=== PATIENT | female | born 1955 | race Caucasian/White ===

== ENCOUNTER → 2023-11-13 07:18 | Outpatient (REF) | payer OTHER, SELFPAY | LOC: DHCBC/DCA 07:18 | PROVIDERS: ATTENDING PHYSICIAN Internal Medicine Cardiovascular Disease; FAMILY PHYSICIAN Nurse Practitioner Adult Health | DX: I25.10 Atherosclerotic heart disease of native coronary artery without angina pectoris (principal) | CPT/HCPCS: 78452; 93017; A9500 ==

== ENCOUNTER 2023-11-17 10:47 | Day surgery (SDC) | payer OTHER, SELFPAY ==
[2023-11-17] VITALS (12 sets, daily range): BP systolic 91–148; BP diastolic 50–76; BMI 33.8
[2023-11-17] MEDS: LOW STRENGTH ASPIRIN 81 MG PO (11:26)
[2023-11-17] MEDS: NSS 243 ML IV (11:27)
--- NOTE | 2023-11-17 13:02 | ITS.CL.CATH ---
[employer] - Catheterization
Cardiac Catheterization
Procedure Report:
CARDIAC CATHETERIZATION REPORT
Date of Procedure: 11/17/2023
Referring: Mitesh Oconnell MD
Indication: Recent office visit for preoperative cardiac evaluation with description by patient of recent onset angina
HEMODYNAMIC DATA
AO: 105/68
LV: 105/16
LEFT VENTRICULOGRAPHY: Normal left ventricular wall motion with EF 69%
CORONARY ANGIOGRAPHY
Dominance: Right
Left Main: Normal
LAD: Diffuse mild luminal irregularities in the LAD. The large D1 has 30% proximal stenosis.
Circumflex: 20% proximal stenosis with otherwise mild luminal irregularities in the circumflex proper. OM1 has 30% proximal to mid stenosis.
RCA: Large dominant vessel. The ostial/proximal RCA stent placed in 2022 is widely patent. There is very mild ostial tapering but no pressure dampening on engagement with a 6 [place] diagnostic catheter. The remainder of the RCA proper has diffuse
mild luminal disease. There is 30% ostial/proximal RPDA stenosis. RPL 1 is a medium sized vessel without disease. RPL 2 is large with 50% proximal stenosis
Closure Device: None-the procedure was performed via the right radial artery. The Matty's test was normal prior to the procedure.
Radiation (mGy): 245
DAP (cm2.Gy): 18.9
Fluoroscopy time: 1.8 minutes
CONCLUSIONS
1: Normal left ventricular function with EF 69%
2: Noncritical CAD with patent ostial/proximal RCA stent (10/2022)
3. Continue risk factor reduction measures. 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
Copy to: Jose Hernandez MD, Dani Ashby,
Mitesh Oconnell MD, [facility], [facility]
[2023-11-17] MEDS: NSS 1000 IV (13:38)
== END 2023-11-17 16:15 | disposition home or self-care (01) ==
LOC: CATH 10:47
PROVIDERS: ATTENDING PHYSICIAN Internal Medicine Cardiovascular Disease; FAMILY PHYSICIAN Internal Medicine
DX: I25.10 Atherosclerotic heart disease of native coronary artery without angina pectoris (principal); Z95.5 Presence of coronary angioplasty implant and graft; I10 Essential (primary) hypertension; E78.2 Mixed hyperlipidemia; I35.0 Nonrheumatic aortic (valve) stenosis; K21.9 Gastro-esophageal reflux disease without esophagitis; Z87.891 Personal history of nicotine dependence; Z79.82 Long term (current) use of aspirin
CPT/HCPCS: 93458; C1894; Q9967

== ENCOUNTER 2023-11-20 06:12 | Day surgery (SDC) | payer OTHER, SELFPAY ==
[2023-10-30 10:35] VITALS: BMI 32.4
[2023-10-30 11:40] LABS: % Basophils 0.9 % (0-2); % Eosinophils 3.6 % (0-6); % Immature Granulocytes 0.4 % (0-0.5); % Lymphocytes 32.7 % (20.5-51.1); % Monocytes 8.3 % (1.7-9.3); % Neutrophils 54.1 % (42.2-75.2); Absolute Basophils 0.1 10^3/uL (0-0.2); Absolute Eosinophils 0.3 10^3/uL (0-0.7); Absolute Lymphocytes 2.6 10^3/uL (1.2-3.4); Absolute Monocytes 0.7 10^3/uL (0.1-0.6); Absolute Neutrophils 4.3 10^3/uL (1.4-6.5); Hematocrit 36.9 % (37.0-47.0); Hemoglobin 11.8 g/dL (12.0-16.0); Mean Corpuscular Hgb 31.5 pg (27.0-31.0); Mean Corpuscular Volume 98.4 fL (81.0-99.0); Mean Platelet Volume 12.1 fL (7.4-10.4); Nucleated Red Blood Cells % 0 %; Platelet Count 241 10^3/uL (130-400); Red Blood Cell Count 3.75 10^6/uL (4.20-5.40); Red Cell Dist. Width 13.6 % (11.5-14.5)
[2023-10-30 12:02] LABS: ALT (SGPT) 94 U/L (0-35); AST (SGOT) 77 U/L (14-36); Albumin 3.7 g/dl (3.5-5.0); Alkaline Phosphatase 143 U/L (38-126); Blood Urea Nitrogen 24 mg/dl (7-17); Calcium 9.2 mg/dl (8.4-10.2); Carbon Dioxide 22 mmol/L (22-30); Chloride 108 mmol/L (98-107); Estimated Creatinine Clearance 47 ml/min; Glucose 95 mg/dl (70-99); Potassium 4.5 mmol/L (3.5-5.1); Sodium 140 mmol/L (135-145); Total Protein 6.5 g/dl (6.3-8.2); eGFR 54.39
[2023-11-20] VITALS (11 sets, daily range): BP systolic 109–154; BP diastolic 56–76; BMI 32.4
[2023-11-20] MEDS: NORMOSOL-R 1000 IV (07:55)
== END 2023-11-20 12:07 | disposition home or self-care (01) ==
LOC: SDS 06:12
PROVIDERS: ATTENDING PHYSICIAN Obstetrics & Gynecology Gynecology; FAMILY PHYSICIAN Nurse Practitioner Adult Health
DX: N84.0 Polyp of corpus uteri (principal); N95.0 Postmenopausal bleeding; N85.6 Intrauterine synechiae; N85.4 Malposition of uterus
CPT/HCPCS: 58558; 88305; 36415; 80053; 85025; 93005

== ENCOUNTER → 2023-12-04 14:53 | Outpatient (REF) | payer OTHER, SELFPAY | LOC: HWRAD 14:53 | PROVIDERS: ATTENDING PHYSICIAN Nurse Practitioner Adult Health | DX: Z13.31 Encounter for screening for depression (principal); Z78.0 Asymptomatic menopausal state; Z12.31 Encounter for screening mammogram for malignant neoplasm of breast | CPT/HCPCS: 77063; 77067; 77080 ==

== ENCOUNTER → 2025-04-17 10:12 | Outpatient (REF) | payer OTHER, SELFPAY | LOC: HWRCS 10:12 | PROVIDERS: ATTENDING PHYSICIAN Student in an Organized Health Care Education/Training Program; FAMILY PHYSICIAN Nurse Practitioner Adult Health | DX: I35.0 Nonrheumatic aortic (valve) stenosis (principal) | CPT/HCPCS: 93306 ==